=== PATIENT | female | born 1960 | race American Indian/Alaskan Native ===

== ENCOUNTER 2018-03-12 22:31 | Emergency (ER) | payer SELFPAY ==
--- NOTE | 2018-03-13 02:41 | Emergency Department Report ---
HPI - General Chief Complaint: Back Pain/Injury Time Seen by Provider: 03/13/18 02:15 - HPI HPI: This is a 58-year-old female with no prior medical history who presents to ED complaining of left-sided back and lower pain 3 days. Patient states the pain is aching throbbing intermittent type pain. She denies injury trauma falling or hitting the back. Patient denies fever chills nausea vomiting abdominal pain , vaginal bleeding or vaginal discharge, dysuria, hematuria ED Past Medical Hx - Past Medical History Hx Hypertension: Yes Hx CVA: No Hx Heart Attack/AMI: No Hx Congestive Heart Failure: No Hx Diabetes: No Hx Deep Vein Thrombosis: No Hx Pulmonary Embolism: No Hx GERD: No Hx Liver Disease: No Hx Renal Disease: No Hx Sickle Cell Disease: No Hx Headaches / Migraines: No Hx Seizures: No Hx Kidney Stones: No Hx Psychiatric Treatment: No Hx Tuberculosis: No Hx Dementia: No Hx HIV: No Additional medical history: hyperthyroid - Surgical History Hx Coronary Stent: No Hx Internal Defibrillator: No Hx Cholecystectomy: No Hx Appendectomy: No Hx Breast Surgery: No Additional Surgical History: hysterectomy - Social History Smoking Status: Never Smoker Substance Use Type: Alcohol - Medications Home Medications: Home Medications Medication Instructions Recorded Confirmed Last Taken Type Triamcinolone 0.025% [Kenalog 1 applic TP TID 30 Days tube 07/08/14 Unknown Rx 0.025% CREAM] diphenhydrAMINE [Benadryl] 50 mg PO Q8HR #14 capsule 07/08/14 Unknown Rx methylPREDNISolone [Medrol Dose 4 mg PO DAILY 7 Days tab 07/08/14 Unknown Rx Ryley] Cyclobenzaprine [Flexeril] 10 mg PO QHS PRN #20 tablet 03/13/18 Unknown Rx Naproxen [Naprosyn TAB] 500 mg PO BID #30 tablet 03/13/18 Unknown Rx ED Review of Systems ROS: Stated complaint: LOWER BACK PAIN Other details as noted in HPI Constitutional: denies: chills, fever Eyes: denies: eye pain, eye discharge, vision change ENT: denies: ear pain, throat pain Respiratory: denies: cough, shortness of breath, wheezing Cardiovascular: denies: chest pain, palpitations Endocrine: no symptoms reported Gastrointestinal: denies: abdominal pain, nausea, diarrhea Genitourinary: denies: urgency, dysuria, discharge Musculoskeletal: denies: back pain, joint swelling, arthralgia Skin: denies: rash, lesions Neurological: denies: headache, weakness, paresthesias Psychiatric: denies: anxiety, depression Hematological/Lymphatic: denies: easy bleeding, easy bruising Physical Exam - Physical Exam Vital Signs: Vital Signs 03/12/18 23:52 Temperature 98.3 F Pulse Rate 64 Respiratory 18 Rate Blood Pressure 155/53 O2 Sat by Pulse 99 Oximetry Physical Exam: GENERAL: Alert and oriented x3, no apparent distress, Normal Gait, atraumatic. HEAD: Head is normocephalic and a-traumatic. NECK: Supple. Non edematous, No lymphadenopathy or thyromegaly. No C-spine tenderness, full range of motion LUNGS: Symetrical with respiration, No wheezing, no rales or crackles, CTAB. HEART: S1, S2 present, regular rate and rhythm without murmur, no rubs, no gallops. Non tender to palpation BACK: Full range of motion, no spinal tenderness, Tenderness to palpation of the left latissimus dorsi muscles of the back. No CVA tenderness EXTREMITIES/MUSCULOSKELETAL: No cyanosis, clubbing, rash, lesions or edema. Full ROM bilaterally. UE/LE Pulses 2+ bilaterally. LE and UE 5+ strength bilaterally, NEUROLOGIC: The patient is cooperative with no focal neurologic deficits. SKIN: Warm and dry, No lesions, No ulceration or induration present. ED Course Vital Signs 03/12/18 23:52 Temperature 98.3 F Pulse Rate 64 Respiratory 18 Rate Blood Pressure 155/53 O2 Sat by Pulse 99 Oximetry ED Medical Decision Making - Medical Decision Making 58-year-old female presents to ED with myalgia of the lower back ED course: Vital signs are normal patient is in no acute distress. Discussed with patient follow-up with primary care physician. Discussed the patient and take medications as prescribed. Patient has no neurological deficit. Patient is alert and oriented 3 and understands all instructions given. Discussed drowsiness effect of Flexeril makes her drowsy and not to operate machinery while taking flexeril Critical care attestation.: If time is entered above; I have spent that time in minutes in the direct care of this critically ill patient, excluding procedure time. ED Disposition Clinical Impression: Myalgia, Strain of muscle, fascia and tendon of lower back, initial encounter Disposition: - TO HOME OR SELFCARE Is pt being admited?: No Does the pt Need Aspirin: No Condition: Stable Instructions: Muscle Strain (ED), Trigger Point Pain (ED), Musculoskeletal Pain (ED) Additional Instructions: Make sure to follow up with the primary care physician as discussed. Take all your medications as you've been prescribed. If you have any worsening symptoms or develop new symptoms please return to ED immediately. Prescriptions: Cyclobenzaprine [Flexeril] 10 mg PO QHS PRN #20 tablet PRN Reason: Muscle Spasm Naproxen [Naprosyn TAB] 500 mg PO BID #30 tablet Referrals: PRIMARY CAREMD [Primary Care Provider] - 3-5 Days MILDRED BOYD MD [Referring] - 3-5 Days [facility] [place] [Outside] - 3-5 Days [facility] [Outside] - 3-5 Days Forms: Work/School Release Form(ED) Time of Disposition: 02:46
[2018-03-13 03:15] VITALS: BP 145/46
== END 2018-03-13 03:00 | disposition home or self-care (01) ==
LOC: ED 22:31
DX: S39.012A Strain of muscle, fascia and tendon of lower back, initial encounter (principal); I10 Essential (primary) hypertension; X58.XXXA Exposure to other specified factors, initial encounter; Y93.89 Activity, other specified; Y92.89 Other specified places as the place of occurrence of the external cause; Y99.8 Other external cause status
CPT/HCPCS: 99282

== ENCOUNTER 2018-03-31 16:18 | Emergency (ER) | payer SELFPAY ==
[2018-03-31] MEDS ORDERED: TORADOL IM ONE (19:30)
--- NOTE | 2018-03-31 19:38 | Emergency Department Report ---
ED Back Pain/Injury HPI - General Chief Complaint: Back Pain/Injury Stated Complaint: LEFT HIP PAIN Time Seen by Provider: 03/31/18 19:19 Source: patient Limitations: No Limitations - History of Present Illness Initial Comments: This is a 58-year-old female nontoxic, well nourished in appearance, no acute signs of distress presents to the ED with c/o of acute on chronic lower back pain. Patient stated she was seen in the ED last month and has been prescribed Flexeril with no relief. Patient states that pain radiates through to his left lower extremity. Patient denies any trauma. Denies any bladder or bowel instability. Denies any fever, chills, nausea, abdominal pain, vomiting, headache, stiff neck, chest pain or shortness of breath. Patient denies any urinary symptoms. Patient denies any numbness or tingling. Denies any allergies. PMH includes HTN. MD Complaint: back pain -: week(s) (3) Similar Symptoms Previously: Yes Radiation: left leg Severity: mild Severity scale (0 -10): 8 Quality: aching Consistency: constant Improves With: immobilization, supine, sitting upright Worsens With: movement, walking Associated Symptoms: denies other symptoms. denies: confusion, weakness, chest pain, difficulty walking, cough, difficulty urinating, diaphoresis, incontinence , fever/chills, constipation, headaches, abdominal pain, loss of appetite, malaise, nausea/vomiting, rash, seizure, shortness of breath, syncope - Related Data Previous Rx's Medication Instructions Recorded Last Taken Type Triamcinolone 0.025% [Kenalog 1 applic TP TID 30 Days tube 07/08/14 Unknown Rx 0.025% CREAM] diphenhydrAMINE [Benadryl] 50 mg PO Q8HR #14 capsule 07/08/14 Unknown Rx methylPREDNISolone [Medrol Dose 4 mg PO DAILY 7 Days tab 07/08/14 Unknown Rx Ryley] Cyclobenzaprine [Flexeril] 10 mg PO QHS PRN #20 tablet 03/13/18 Unknown Rx Naproxen [Naprosyn TAB] 500 mg PO BID #30 tablet 03/13/18 Unknown Rx Acetaminophen/Codeine [Tylenol 1 tab PO Q6H PRN #15 tab 03/31/18 Unknown Rx /Codeine # 3 tab] Ciprofloxacin HCl [Ciprofloxacin 500 mg PO Q12HR #14 tab 03/31/18 Unknown Rx TAB] methOCARBAMOL [Robaxin TAB] 500 mg PO BID #14 tab 03/31/18 Unknown Rx Allergies Allergy/AdvReac Type Severity Reaction Status Date / Time No Known Allergies Allergy Verified 07/08/14 14:43 ED Review of Systems ROS: Stated complaint: LEFT HIP PAIN Other details as noted in HPI Constitutional: denies: chills, fever Eyes: denies: eye pain, eye discharge, vision change ENT: denies: ear pain, throat pain Respiratory: denies: cough, shortness of breath, wheezing Cardiovascular: denies: chest pain, palpitations Endocrine: no symptoms reported Gastrointestinal: denies: abdominal pain, nausea, diarrhea Genitourinary: denies: urgency, dysuria, discharge Musculoskeletal: arthralgia. denies: back pain, joint swelling Skin: denies: rash, lesions Neurological: denies: headache, weakness, paresthesias Psychiatric: denies: anxiety, depression Hematological/Lymphatic: denies: easy bleeding, easy bruising ED Past Medical Hx - Past Medical History Hx Hypertension: Yes Hx CVA: No Hx Heart Attack/AMI: No Hx Congestive Heart Failure: No Hx Diabetes: No Hx Deep Vein Thrombosis: No Hx Pulmonary Embolism: No Hx GERD: No Hx Liver Disease: No Hx Renal Disease: No Hx Sickle Cell Disease: No Hx Headaches / Migraines: No Hx Seizures: No Hx Kidney Stones: No Hx Psychiatric Treatment: No Hx Tuberculosis: No Hx Dementia: No Hx HIV: No Additional medical history: hyperthyroid - Surgical History Hx Coronary Stent: No Hx Internal Defibrillator: No Hx Cholecystectomy: No Hx Appendectomy: No Hx Breast Surgery: No Additional Surgical History: hysterectomy - Social History Smoking Status: Former Smoker Substance Use Type: None - Medications Home Medications: Home Medications Medication Instructions Recorded Confirmed Last Taken Type Triamcinolone 0.025% [Kenalog 1 applic TP TID 30 Days tube 07/08/14 Unknown Rx 0.025% CREAM] diphenhydrAMINE [Benadryl] 50 mg PO Q8HR #14 capsule 07/08/14 Unknown Rx methylPREDNISolone [Medrol Dose 4 mg PO DAILY 7 Days tab 07/08/14 Unknown Rx Ryley] Cyclobenzaprine [Flexeril] 10 mg PO QHS PRN #20 tablet 03/13/18 Unknown Rx Naproxen [Naprosyn TAB] 500 mg PO BID #30 tablet 03/13/18 Unknown Rx Acetaminophen/Codeine [Tylenol 1 tab PO Q6H PRN #15 tab 03/31/18 Unknown Rx /Codeine # 3 tab] Ciprofloxacin HCl [Ciprofloxacin 500 mg PO Q12HR #14 tab 03/31/18 Unknown Rx TAB] methOCARBAMOL [Robaxin TAB] 500 mg PO BID #14 tab 03/31/18 Unknown Rx ED Physical Exam - General Limitations: No Limitations General appearance: alert, in no apparent distress - Head Head exam: Present: atraumatic, normocephalic - Eye Eye exam: Present: normal appearance Pupils: Present: normal accommodation - ENT ENT exam: Present: normal exam, mucous membranes moist - Neck Neck exam: Present: normal inspection, full ROM. Absent: tenderness, meningismus, lymphadenopathy - Respiratory Respiratory exam: Present: normal lung sounds bilaterally. Absent: respiratory distress, wheezes, rales, rhonchi, stridor, chest wall tenderness, accessory muscle use, decreased breath sounds, prolonged expiratory - Cardiovascular Cardiovascular Exam: Present: regular rate, normal rhythm, normal heart sounds. Absent: irregular rhythm, systolic murmur, diastolic murmur, rubs, gallop - GI/Abdominal GI/Abdominal exam: Present: soft, normal bowel sounds. Absent: distended, tenderness, guarding, rebound, rigid, diminished bowel sounds - Rectal Rectal exam: Present: deferred - Extremities Exam Extremities exam: Present: normal inspection, full ROM, normal capillary refill. Absent: tenderness - Back Exam Back exam: Present: normal inspection, full ROM, paraspinal tenderness (left lumbar region). Absent: tenderness, CVA tenderness (R), CVA tenderness (L), muscle spasm, vertebral tenderness, rash noted - Expanded Back Exam Expanded Back exam: Absent: saddle anesthesia Back exam: Negative Straight Leg Raising: Left, Right - Neurological Exam Neurological exam: Present: alert, oriented X3, normal gait - Psychiatric Psychiatric exam: Present: normal affect, normal mood - Skin Skin exam: Present: warm, dry, intact, normal color. Absent: rash ED Course Vital Signs 03/31/18 17:17 Temperature 98.8 F Pulse Rate 96 H Respiratory 20 Rate Blood Pressure 163/84 O2 Sat by Pulse 99 Oximetry - Reevaluation(s) Reevaluation #1: 03/31/18 19:40 Patient is speaking in full sentences with no signs of distress noted. ED Medical Decision Making - Medical Decision Making This is a 58-year-old male that presents with low back strain and UTI. Patient is stable was examined by me. UA with elevated WBC, leukocytes and blood. There is no spinal tenderness. There is no cauda equina syndrome during examination. No bladder or bowel instability. Patient received Toradol 60 mg IM in the ED which preceded his symptoms has resolved and subsided. Patient is discharged with Cipro, Robaxin and Tylenol with codeine. Patient was instructed not to operate any machinery while taking muscle relaxant as they cause her drowsiness. Patient was referred to Follow-up with a primary care doctor in 3-5 days or if symptoms worsen and continue return to emergency room as soon as possible. At time of discharge, the patient does not seem toxic or ill in appearance. No acute signs of distress noted. Patient agrees to discharge treatment plan of care. No further questions noted by the patient. This chart is dictated with using [employer] Critical care attestation.: If time is entered above; I have spent that time in minutes in the direct care of this critically ill patient, excluding procedure time. ED Disposition Clinical Impression: Low back strain Qualifiers: Encounter type: initial encounter Qualified Code(s): S39.012A - Strain of muscle, fascia and tendon of lower back, initial encounter UTI (urinary tract infection) Qualifiers: Urinary tract infection type: site unspecified Hematuria presence: with hematuria Qualified Code(s): N39.0 - Urinary tract infection, site not specified ; R31.9 - Hematuria, unspecified Disposition: DC- TO HOME OR SELFCARE Is pt being admited?: No Does the pt Need Aspirin: No Condition: Stable Instructions: Acetaminophen/Codeine (By mouth), Methocarbamol (By mouth), Low Back Strain (ED), Urinary Tract Infection in Women (ED), Ciprofloxacin (By mouth ) Additional Instructions: Follow-up with a primary care doctor in 3-5 days or if symptoms worsen and continue return to emergency room as soon as possible. Take Tylenol with Codeine and Robaxin as prescribed but Do not operate heavy machinery while taking this due to sedation Prescriptions: Acetaminophen/Codeine [Tylenol /Codeine # 3 tab] 1 tab PO Q6H PRN #15 tab PRN Reason: Pain Ciprofloxacin HCl [Ciprofloxacin TAB] 500 mg PO Q12HR #14 tab methOCARBAMOL [Robaxin TAB] 500 mg PO BID #14 tab Referrals: PRIMARY CAREMD [Primary Care Provider] - 3-5 Days BUTCH CORDOVA MD [Staff Physician] - 3-5 Days [facility] [Outside] - 3-5 Days [facility] [Outside] - 3-5 Days Forms: Work/School Release Form(ED)
[2018-03-31 20:36] LABS: Bilirubin,Urine NEG (Negative); Blood,Urine SM (Negative); Color,Urine Yellow (Yellow); Mucus,Urine 3+ /HPF; Protein,Urine <15 mg/dL mg/dL (Negative)
--- NOTE | 2018-03-31 21:05 | XRay Report ---
FINAL REPORT EXAM: XR SPINE LUMBOSACRAL 2-3V HISTORY: back pain TECHNIQUE: AP, lateral and coned-down views of lumbar spine. PRIORS: None. FINDINGS: Moderate-marked disc space narrowing, less severe endplate sclerosis and spurring in the L5-S1 level. Remainder of lumbar disc spaces maintained. Diffuse facet arthrosis in mid-lower lumbar spine. No loss of height or gross malalignment of lumbar vertebral bodies. No obvious osseous destruction. Paraspinal soft tissues grossly unremarkable. IMPRESSION: 1. No acute osseous abnormality. 2. Degenerative changes.
[2018-03-31 21:19] VITALS: BP 164/83
== END 2018-03-31 21:19 | disposition home or self-care (01) ==
LOC: ED 16:18
DX: S39.012A Strain of muscle, fascia and tendon of lower back, initial encounter (principal); N39.0 Urinary tract infection, site not specified; R31.9 Hematuria, unspecified; I10 Essential (primary) hypertension; E05.90 Thyrotoxicosis, unspecified without thyrotoxic crisis or storm; Z90.710 Acquired absence of both cervix and uterus; Z87.891 Personal history of nicotine dependence; Z79.899 Other long term (current) drug therapy; X58.XXXA Exposure to other specified factors, initial encounter; Y93.89 Activity, other specified; Y99.8 Other external cause status; Y92.89 Other specified places as the place of occurrence of the external cause
CPT/HCPCS: 72100; 81001; 87086; 96372; 99283; J1885

== ENCOUNTER 2020-06-29 21:48 | Emergency (ER) | payer OTHER, BC ==
[2020-06-29 22:57] VITALS: BP 155/92
[2020-06-30] MEDS ORDERED: ONDANSETRON 4 MG ODT TAB PO ONE (00:47)
[2020-06-30] MEDS ORDERED: HYDROcodone/ACETAMINOPHEN 7.5-325MG TAB PO ONE (00:47)
[2020-06-30] MEDS ORDERED: IBUPROFEN 600 MG TAB PO ONE (00:47)
--- NOTE | 2020-06-30 02:47 | Cat Scan Report ---
CT HEAD WITHOUT CONTRAST HISTORY: [facility]. with injury and pain COMPARISON: None TECHNIQUE: CT imaging of the head was performed in the axial, sagittal, and coronal projections and bone algori thm in axial projection in the soft tissue algorithm. All CT scans at this location are performed using CT dose reduction for ALARA by means of automated e xposure control. CONTRAST: None. FINDINGS: Cerebral and Cerebellar Hemispheres: No evidence of mass or mass effect. No midline shift. No acute hemorrhage. No acute cortical infarction. No extra-axial fluid collection. Ventricles: Normal in size and configuration for age. Osseous Structures: No significant abnormality. Visualized Paranasal Sinuses: No significant abnormality. Additional Findings: Multiple very small low density lesions within the bony calvarium IMPRESSION: 1. No acute intracranial abnormality. 2. Multiple low dense lesions within the bony calvarium, nuclear medicine bone scan may be of benefit for further evaluation NOTE: Acute infarct may not be visible by noncontrast CT. Signer Name: Cas Parekh MD Signed: 06/30/2020 2:43 AM Workstation Name: [id number]
--- NOTE | 2020-06-30 02:48 | Cat Scan Report ---
CLINICAL DATA: [facility]. with injury and pain TECHNICAL DATA: CT imaging of the facial bones was performed with images presented in the coronal, axial, and sagitta l imaging planes. All CT scans at this location are performed using CT dose reduction for ALARA by means of automated exposure control. FINDINGS: The facial bones are intact without evidence of fracture. The paranasal sinuses are clear and aerate d. Partially imaged mastoids are clear. The temporomandibular joints and mandible are unremarkable to the extent of visualization allowed by this technique. The teeth appear grossly unremarkable. Th e orbits are unremarkable with globes being intact. Extraocular muscles, optic nerves, and retroorbi kaleb fat are normal. IMPRESSION: Normal facial bone CT. Signer Name: Cas Parekh MD Signed: 06/30/2020 2:44 AM Workstation Name: [id number]
--- NOTE | 2020-06-30 02:50 | Cat Scan Report ---
CLINICAL DATA: [facility]. with injury and pain TECHNICAL DATA: CT imaging of the lumbar spine was performed from reconstructed images of the CT abdomen pelvis. Imag es were reconstructed in the axial, coronal, and sagittal imaging planes. All CT scans at this location are performed using CT dose reduction for ALARA by means of automated e xposure control. FINDINGS: L1-2: The thecal sac is normal. No evidence of disc herniation or disc bulge. Facets within normal limits. No evidence of spinal stenosis. L2-3: The thecal sac is normal. No evidence of disc herniation or disc bulge. Moderate facet degene rative changes L3-4: The thecal sac is normal. No evidence of disc herniation or disc bulge. Facets demonstrate m oderate degenerative changes No evidence of spinal stenosis. L4-5: The thecal sac is normal. No evidence of disc herniation or disc bulge. Moderate facet degene rative changes L5-S1: The thecal sac is normal. No evidence of disc herniation or disc bulge. Moderate facet degen erative changes IMPRESSION: Degenerative changes as noted Signer Name: Cas Parekh MD Signed: 06/30/2020 2:46 AM Workstation Name: [id number]
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
== END 2020-06-30 03:45 | disposition home or self-care (01) ==
LOC: ED 21:48
DX: S10.93XA Contusion of unspecified part of neck, initial encounter (principal); S00.83XA Contusion of other part of head, initial encounter; S00.03XA Contusion of scalp, initial encounter; G44.319 Acute post-traumatic headache, not intractable; M62.830 Muscle spasm of back; E03.9 Hypothyroidism, unspecified; F17.200 Nicotine dependence, unspecified, uncomplicated; Z79.899 Other long term (current) drug therapy; Z90.710 Acquired absence of both cervix and uterus; V49.49XA Driver injured in collision with other motor vehicles in traffic accident, initial encounter; Y92.410 Unspecified street and highway as the place of occurrence of the external cause; Y93.89 Activity, other specified; Y99.8 Other external cause status
CPT/HCPCS: 70450; 70486; 72131; Q0162